=== PATIENT | male | born 1980 | race Two or more races ===

== ENCOUNTER 2020-04-28 10:38 | Emergency (ER) | payer MEDICAID ==
[~2020-04-28] VITALS: Ht 170.2 cm; Wt 63.5 kg
--- NOTE | 2020-04-28 10:46 | NUR ---
PT SEEN AND EXAMINED BY .
--- NOTE | 2020-04-28 11:00 | NUR ---
PT IS WHEELED TO CT SCAN VIA [facility].
--- NOTE | 2020-04-28 14:32 | NUR ---
PT ASSESSED ON BED ASLEEP EASILY AROUSABLE. NOT IN RESPIRATORY DISTRESS, V/S STABLE, KEPT RESTED AND COMFORTABLE. WILL CONTINUE TO MONITOR.
--- NOTE | 2020-04-28 15:25 | NUR ---
PT ASSESSED ON BED ASLEEP EASILY AROUSABLE. NOT IN RESPIRATORY DISTRESS, V/S STABLE, KEPT RESTED AND COMFORTABLE. WILL CONTINUE TO MONITOR.
[2020-04-28 16:35] VITALS: BP 135/71
--- NOTE | 2020-04-28 16:36 | NUR ---
Patient discharged to home in stable condition. Written and verbal after care instructions given. Patient verbalizes understanding of instruction.
== END 2020-04-28 16:36 | disposition home or self-care (01) ==
LOC: ER 10:42
DX: S00.12XA Contusion of left eyelid and periocular area, initial encounter (principal); S00.11XA Contusion of right eyelid and periocular area, initial encounter; Y04.0XXA Assault by unarmed brawl or fight, initial encounter; Y93.89 Activity, other specified; Y92.89 Other specified places as the place of occurrence of the external cause; Y99.8 Other external cause status
CPT/HCPCS: 70450-TC; 70480-TC